=== PATIENT | female | born 1980 | race Caucasian/White ===

== ENCOUNTER → 2017-01-21 | Outpatient (CLI) | payer OTHER ==
[2017-01-21 13:23] LABS: MEAN CORPUSCULAR HEMOGLOBIN 31.5 pg (27.0-33.0); MEAN CORPUSCULAR HGB CONC 34.9 g/dl (32.0-36.5); MEAN CORPUSCULAR VOLUME 90.3 fl (80.0-96.0); RED CELL DISTRIBUTION WIDTH 12.7 % (11.5-14.5)
[2017-01-21 13:41] LABS: EOSINOPHILS 2 % (0-5)
[2017-01-21 13:55] LABS: FREE T4 0.95 NG/DL (0.76-1.46)
== END ==
LOC: M SMT 09:39
PROVIDERS: ATTEND Physician Assistant Medical
DX: N97.9 Female infertility, unspecified (principal); Z13.29 Encounter for screening for other suspected endocrine disorder; Z13.0 Encounter for screening for diseases of the blood and blood-forming organs and certain disorders involving the immune mechanism

== ENCOUNTER → 2017-01-30 | Outpatient (REF) | payer OTHER | LOC: M LAB REF 10:09 | PROVIDERS: ATTEND Physician Assistant | DX: J02.9 Acute pharyngitis, unspecified (principal) ==

== ENCOUNTER → 2017-05-05 | Outpatient (CLI) | payer OTHER | LOC: M SMT 09:21 | PROVIDERS: ATTEND Physician Assistant Medical | DX: Z00.00 Encounter for general adult medical examination without abnormal findings (principal); Z83.3 Family history of diabetes mellitus ==